=== PATIENT | female | born 1945 | race Caucasian/White ===

== ENCOUNTER 2018-09-26 17:53 | Emergency (ER) | payer OTHER, MEDICARE ==
[2018-09-26] MEDS ORDERED: HYDROCODONE/APAP 7.5/325 MG TAB ONE (19:24)
[2018-09-26] MEDS ORDERED: KETOROLAC 30 MG/ML INJ ONE (19:24)
--- NOTE | 2018-09-26 19:49 | RAD REPORT ---
EXAM DESCRIPTION: RAD - Lumbar Spine 3 Views - 09/26/2018 7:36 pm CLINICAL HISTORY: PAIN Fall, trauma COMPARISON: LUMBAR SPINE 3 VIEWS dated 11/11/2014; SPINE LUMBAR W OBLIQUE dated 03/26/2009 FINDINGS: Lumbar spine and sacrum/coccyx, multiple projections are submitted Vertebral body heights appear maintained. No acute lumbar compression fracture noted. Moderate degene rative changes present at L4-5 and L5-S1. No spondylolysis or spondylolisthesis. Thin lucency is seen along the posterior aspect of the sacrum on the lateral projection, suspicious f or nondisplaced fracture. IMPRESSION: Nondisplaced inferior sacral fracture is suspected. No acute lumbar spine abnormality seen.
--- NOTE | 2018-09-26 20:11 | RAD REPORT ---
EXAM DESCRIPTION: RAD - Sacrum And Coccyx - 09/26/2018 7:35 pm CLINICAL HISTORY: PAIN Fall, trauma COMPARISON: LUMBAR SPINE 3 VIEWS dated 11/11/2014; SPINE LUMBAR W OBLIQUE dated 03/26/2009 FINDINGS: Lumbar spine and sacrum/coccyx, multiple projections are submitted Vertebral body heights appear maintained. No acute lumbar compression fracture noted. Moderate degene rative changes present at L4-5 and L5-S1. No spondylolysis or spondylolisthesis. Thin lucency is seen along the posterior aspect of the sacrum on the lateral projection, suspicious f or nondisplaced fracture. IMPRESSION: Nondisplaced inferior sacral fracture is suspected. No acute lumbar spine abnormality seen.
--- NOTE | 2018-09-26 20:44 | EDPHYS ---
Physician Documentation [facility] Name: Shu Montano Age: 73 yrs Sex: Female : 1945 Arrival Date: 09/26/2018 Time: 17:54 Bed 27 Private MD: Abelardo Messina C ED Physician Shalom Herron HPI: 09/26 21:00 This 73 yrs old Female presents to ER via Ambulatory with complaints of Fall jr8 Injury, Back Pain. 21:00 Details of fall: The patient fell from an upright position, while standing. Onset: The jr8 symptoms/episode began/occurred acutely, today. Associated injuries: The patient sustained buttocks. Severity of symptoms: At their worst the symptoms were moderate, in the emergency department the symptoms are unchanged. The patient has not experienced similar symptoms in the past. The patient has not recently seen a physician. Patient was going to sit on bed and missed bed landing directly on floor. Pain since incident . Historical: - Allergies: 17:58 Ciprofloxacin; ss - PMHx: 17:58 Hypertension; ss - PSHx: 17:58 Right mastectomy; Hysterectomy; Bladder lift; ss - Immunization history:: Adult Immunizations up to date. - Social history:: Smoking status: Patient/guardian denies using tobacco. - Ebola Screening: : No symptoms or risks identified at this time. ROS: 21:00 Eyes: Negative for injury, pain, redness, and discharge, ENT: Negative for injury, jr8 pain, and discharge, Neck: Negative for injury, pain, and swelling, Cardiovascular: Negative for chest pain, palpitations, and edema, Respiratory: Negative for shortness of breath, cough, wheezing, and pleuritic chest pain, Abdomen/GI: Negative for abdominal pain, nausea, vomiting, diarrhea, and constipation, MS/Extremity: Negative for injury and deformity, Skin: Negative for injury, rash, and discoloration, Neuro: Negative for headache, weakness, numbness, tingling, and seizure. 21:00 Back: Positive for pain at rest, pain with movement, of the low back area and sacrum. Exam: 21:00 Eyes: Pupils equal round and reactive to light, extra-ocular motions intact. Lids and jr8 lashes normal. Conjunctiva and sclera are non-icteric and not injected. Cornea within normal limits. Periorbital areas with no swelling, redness, or edema. ENT: Nares patent. No nasal discharge, no septal abnormalities noted. Tympanic membranes are normal and external auditory canals are clear. Oropharynx with no redness, swelling, or masses, exudates, or evidence of obstruction, uvula midline. Mucous membranes moist. Neck: Trachea midline, no thyromegaly or masses palpated, and no cervical lymphadenopathy. Supple, full range of motion without nuchal rigidity, or vertebral point tenderness. No Meningismus. Cardiovascular: Regular rate and rhythm with a normal S1 and S2. No gallops, murmurs, or rubs. Normal PMI, no JVD. No pulse deficits. Respiratory: Lungs have equal breath sounds bilaterally, clear to auscultation and percussion. No rales, rhonchi or wheezes noted. No increased work of breathing, no retractions or nasal flaring. Abdomen/GI: Soft, non-tender, with normal bowel sounds. No distension or tympany. No guarding or rebound. No evidence of tenderness throughout. Skin: Warm, dry with normal turgor. Normal color with no rashes, no lesions, and no evidence of cellulitis. MS/ Extremity: Pulses equal, no cyanosis. Neurovascular intact. Full, normal range of motion. Neuro: Awake and alert, GCS 15, oriented to person, place, time, and situation. Cranial nerves II-XII grossly intact. Motor strength 5/5 in all extremities. Sensory grossly intact. Cerebellar exam normal. Normal gait. 21:00 Back: pain, that is mild, of the sacrum, ROM is painful, normal spinal alignment noted, CVA tenderness, is absent, vertebral tenderness, is not appreciated. Vital Signs: 17:58 BP 152 / 73; Pulse 88; Resp 18; Temp 97.6(TE); Pulse Ox 99% on R/A; Weight 72.57 kg; ss Height 5 ft. 5 in. (165.10 cm); Pain 9/10; 19:42 BP 133 / 73; Pulse 78; Resp 17 S; Temp 97.8(O); Pulse Ox 99% on R/A; ca1 20:41 BP 135 / 75; Pulse 80; Resp 17 S; Temp 98.1(O); Pulse Ox 99% on R/A; ca1 20:45 BP 132 / 73; Pulse 79; Resp 17 S; Temp 98.2(O); Pulse Ox 99% on R/A; ca1 17:58 Body Mass Index 26.63 (72.57 kg, 165.10 cm) ss MDM: 19:04 Patient medically screened. jr8 20:41 Data reviewed: vital signs, nurses notes, radiologic studies, plain films, and as a jr8 result, I will discharge patient. Data interpreted: Pulse oximetry: on room air is 99 %. Interpretation: normal. Counseling: I had a detailed discussion with the patient and/or guardian regarding: the historical points, exam findings, and any diagnostic results supporting the discharge/admit diagnosis, radiology results, the need for outpatient follow up, a orthopedic surgeon, to return to the emergency department if symptoms worsen or persist or if there are any questions or concerns that arise at home. ED course: Consulted Dr. Bryan. No surgical requirement. Pain management and conservative therapy at this point which patient is good with . 09/26 19:05 Order name: XRAY Lumbar Spine (3 Views); Complete Time: 20:36 jr8 09/26 19:05 Order name: XRAY Sacrum And Coccyx jr8 Administered Medications: 19:08 Drug: [place] (7.5 mg-325 mg) 1 tabs Route: PO; ca1 19:41 Follow up: Response: No adverse reaction; Pain is decreased ca1 19:10 Drug: TORadol - Ketorolac 15 mg Route: IM; Site: left deltoid; ca1 19:41 Follow up: Response: No adverse reaction; Pain is decreased ca1 Disposition: 09/27 07:03 Co-signature as Attending Physician, Shalom Herron MD I agree with the assessment and kdr plan of care. Disposition: 09/26/18 20:43 Discharged to Home. Impression: Sacral Fracture . - Condition is Stable. - Discharge Instructions: Tailbone Injury. - Prescriptions for Ibuprofen 800 mg Oral Tablet - take 1 tablet by ORAL route every 12 hours As needed take with food; 20 tablet. Tylenol- Codeine #3 300-30 mg Oral Tablet - take 2 tablets by ORAL route every 6 hours As needed; 20 tablet. - Medication Reconciliation Form, Thank You Letter, Antibiotic Education, Prescription Opioid Use form. - Follow up: Garrett Bryan MD; When: 1 week; Reason: Recheck today's complaints, Continuance of care, Re-evaluation by your physician. - Problem is new. - Symptoms have improved. Signatures: Dispatcher [employer] EDMS Shalom Herron MD MD [facility] Miri Jessica RN RN Willam Sofia PA PA jr8 Rosi Leiva RN RN ca1 Corrections: (The following items were deleted from the chart) 09/26 21:13 20:43 09/26/2018 20:43 Discharged to Home. Impression: Sacral Fracture . Condition is ca1 Stable. Forms are Medication Reconciliation Form, Thank You Letter, Antibiotic Education, Prescription Opioid Use. Follow up: Garrett Bryan; When: 1 week; Reason: Recheck today's complaints, Continuance of care, Re-evaluation by your physician. Problem is new. Symptoms have improved. jr8
--- NOTE | 2018-09-26 20:44 | ER ---
[facility] Name: Shu Montano Age: 73 yrs Sex: Female : 1945 Arrival Date: 09/26/2018 Time: 17:54 Bed 27 Private MD: Abelardo Messina C Diagnosis: Sacral Fracture Presentation: 09/26 17:57 Presenting complaint: Patient states: i was gonna sit down on the edge of the bed when ss i fell on a concrete floor and hurt my lower back down to the tail bone; denies hitting head and LOC;. 18:00 Transition of care: patient was not received from another setting of care. Onset of ss symptoms was September 26, 2018. Risk Assessment: Do you want to hurt yourself or someone else? Patient reports no desire to harm self or others. Initial Sepsis Screen: Does the patient meet any 2 criteria? No. Patient's initial sepsis screen is negative. Does the patient have a suspected source of infection? No. Patient's initial sepsis screen is negative. Care prior to arrival: None. 18:00 Method Of Arrival: Ambulatory ss 18:00 Acuity: TIFFANIE 4 ss Historical: - Allergies: 17:58 Ciprofloxacin; ss - PMHx: 17:58 Hypertension; ss - PSHx: 17:58 Right mastectomy; Hysterectomy; Bladder lift; ss - Immunization history:: Adult Immunizations up to date. - Social history:: Smoking status: Patient/guardian denies using tobacco. - Ebola Screening: : No symptoms or risks identified at this time. Screenin:13 Abuse screen: Denies threats or abuse. Denies injuries from another. Nutritional ca1 screening: No deficits noted. Tuberculosis screening: No symptoms or risk factors identified. Fall Risk Fall in past 12 months (25 points). Assessment: 18:13 General: Appears in no apparent distress. comfortable, Behavior is calm, cooperative, ca1 appropriate for age. Pain: Complains of pain in coccyx Pain does not radiate. Pain currently is 9 out of 10 on a pain scale. Quality of pain is described as dull, Pain began 30 min ago. Is continuous. Neuro: Level of Consciousness is awake, alert, obeys commands, Oriented to person, place, time, situation. Cardiovascular: Heart tones S1 S2 present Capillary refill < 3 seconds Patient's skin is warm and dry. Respiratory: Airway is patent Respiratory effort is even, unlabored, Breath sounds are clear bilaterally. GI: Abdomen is flat, non-distended, Bowel sounds present X 4 quads. Abd is soft and non tender X 4 quads. : No deficits noted. No signs and/or symptoms were reported regarding the genitourinary system. EENT: No deficits noted. No signs and/or symptoms were reported regarding the EENT system. Derm: Skin is intact, is healthy with good turgor, Skin is pink, warm \T\ dry. Musculoskeletal: Circulation, motion, and sensation intact. Capillary refill < 3 seconds, Range of motion: intact in all extremities. 19:29 Reassessment: Pt to Radiology. ca1 19:41 Reassessment: Patient appears in no apparent distress at this time. Patient and/or ca1 family updated on plan of care and expected duration. Pain level reassessed. Patient is alert, oriented x 3, equal unlabored respirations, skin warm/dry/pink. Patient states feeling better. 20:45 Reassessment: Patient appears in no apparent distress at this time. Patient is alert, ca1 oriented x 3, equal unlabored respirations, skin warm/dry/pink. Patient states feeling better. Vital Signs: 17:58 BP 152 / 73; Pulse 88; Resp 18; Temp 97.6(TE); Pulse Ox 99% on R/A; Weight 72.57 kg; ss Height 5 ft. 5 in. (165.10 cm); Pain 9/10; 19:42 BP 133 / 73; Pulse 78; Resp 17 S; Temp 97.8(O); Pulse Ox 99% on R/A; ca1 20:41 BP 135 / 75; Pulse 80; Resp 17 S; Temp 98.1(O); Pulse Ox 99% on R/A; ca1 20:45 BP 132 / 73; Pulse 79; Resp 17 S; Temp 98.2(O); Pulse Ox 99% on R/A; ca1 17:58 Body Mass Index 26.63 (72.57 kg, 165.10 cm) ED Course: 17:54 Patient arrived in ED. ag5 17:55 Abelardo Messina MD is Private Physician. ag5 17:59 Arm band placed on right wrist. 18:00 Triage completed. 18:03 Rosi Leiva, RN is Primary Nurse. ca1 18:13 Patient has correct armband on for positive identification. Placed in gown. Bed in low ca1 position. Call light in reach. Side rails up X 1. Pulse ox on. NIBP on. Warm blanket given. 18:26 Willam Sofia PA is PHCP. jr8 18:26 Shalom Herron MD is Attending Physician. jr8 19:35 XRAY Lumbar Spine (3 Views) In Process Unspecified. EDMS 19:35 XRAY Sacrum And Coccyx In Process Unspecified. EDMS 19:37 X-ray completed. Patient tolerated procedure well. Patient moved back from radiology. 20:42 Garrett Santos MD is Referral Physician. jr8 21:01 No provider procedures requiring assistance completed. Patient did not have IV access ca1 during this emergency room visit. Administered Medications: 19:08 Drug: [place] (7.5 mg-325 mg) 1 tabs Route: PO; ca1 19:41 Follow up: Response: No adverse reaction; Pain is decreased ca1 19:10 Drug: TORadol - Ketorolac 15 mg Route: IM; Site: left deltoid; ca1 19:41 Follow up: Response: No adverse reaction; Pain is decreased ca1 Outcome: 20:43 Discharge ordered by . jr8 21:01 Discharged to home via wheelchair, with significant other. ca1 21:01 Condition: stable 21:01 Discharge instructions given to patient, Instructed on discharge instructions, follow up and referral plans. medication usage, Demonstrated understanding of instructions, follow-up care, medications, Prescriptions given X 2. 21:13 Patient left the ED. ca1 Signatures: Dispatcher [employer] EDNJ Miri Jessica RN RN Willam Sofia PA PA jr [facility] Rosi Leiva RN RN [facility] Yrn Harrington ag5
[2018-09-26 21:17] VITALS: O2SAT 99
[2018-09-26 21:21] VITALS: BP 132/73; TEMP 98.2
== END 2018-09-26 21:13 | disposition home or self-care (01) ==
LOC: ER 17:53
DX: S32.10XA Unspecified fracture of sacrum, initial encounter for closed fracture (principal); W18.39XA Other fall on same level, initial encounter; I10 Essential (primary) hypertension
CPT/HCPCS: 72100; 72220; 96372; 99284

== ENCOUNTER 2023-05-07 10:46 | Inpatient (IN) | payer OTHER ==
[2023-05-07] MEDS ORDERED: NA CHLORIDE 0.9% 1,000 ML ONE (11:21)
[2023-05-07 11:52] LABS: Absolute Lymphocytes (CBC) 0.7 K/uL (0.7-4.9); Hematocrit 40.2 % (36.0-45.0); Lymphocytes % 6.8 % (15.3-44.8); MCV 91.2 fL (80-100); MPV 9.7 fL (7.6-11.3); Platelets 266 thou/uL (152-406); RBC Red Blood Cell Count 4.41 M/uL (3.86-4.86)
[2023-05-07 12:00] LABS: Protime INR 1.11
--- NOTE | 2023-05-07 12:00 | RAD REPORT ---
EXAM DESCRIPTION: CT - CTFB CLINICAL HISTORY: TRAUMA COMPARISON: Head C Spine Cap Wo Con dated 05/07/2023 TECHNIQUE: Axial thin cut noncontrast CT images of the face were obtained with sagittal and coronal reconstruction images. All CT scans are performed using dose optimization technique as appropriate and may include automated exposure control or mA/KV adjustment according to patient size. FINDINGS: No acute facial bone fracture is seen.The mandible is intact. The globes and orbital contents are grossly unremarkable.Left maxillary sinus mucous retention cyst. The paranasal sinuses and mastoids are otherwise clear. IMPRESSION: Negative for facial bone fracture. Left maxillary sinus mucous retention cyst.
--- NOTE | 2023-05-07 12:07 | RAD REPORT ---
EXAM DESCRIPTION: CT - Head C Spine Cap Wo Con - 05/07/2023 11:15 am CLINICAL HISTORY: TRAUMA COMPARISON: No comparisons TECHNIQUE: Head and cervical spine CT images were obtained without IV contrast. Chest, abdomen, and pelvis CT images were obtained also without IV contrast. Multiplanar reformats were generated and rev iewed. All CT scans are performed using dose optimization technique as appropriate and may include automated exposure control or mA/KV adjustment according to patient size. FINDINGS: CT HEAD: No intracranial hemorrhage, mass effect, or edema. No evidence of acute territorial infarct. No midli ne shift or abnormal fluid collection. The ventricles are normal in caliber and configuration for age . Basal cisterns are patent. Mastoid aircells and paranasal sinuses are clear. No acute skull fractur e. CT CERVICAL SPINE: No acute cervical spine fracture or subluxation. Vertebral body heights are well maintained. Facet jim ints are normal in alignment. No hyperattenuating canal hematoma. Prevertebral and paraspinous soft t issues are unremarkable. CT CHEST: No pneumothorax, pulmonary contusion or pleural fluid collection. No mediastinal hematoma and the aor ta and pulmonary arteries are unremarkable. No chest will mass or abnormal axillary finding. Calcifie d left hilar small lymph nodes, suggestive of prior granulomatous infection. Small left lung calcifie d granuloma as well No displaced rib fracture or other significant bony finding. CT ABDOMEN/ PELVIS: No evidence of traumatic injury to solid abdominal viscera. Few calcific granulomas within the spleen . Multiple hepatic well-circumscribed hypoattenuating lesions, the largest is subcapsular at the hepa tic dome measuring at least 4.4 cm. Many of these are suggestive of cysts, however they are not well characterized. Sequelae of distal colon partial resection with colorectal anastomosis. Gallbladder an d biliary tree are unremarkable. No bowel injury or significant finding. No free air, free fluid or a bnormal fat stranding. No urinary bladder abnormality. Mildly comminuted and minimally displaced fracture involving the proximal right humerus, at the base of the greater tuberosity. IMPRESSION: Mildly comminuted and minimally displaced proximal right humerus fracture, at the base o f the greater tuberosity. No other acute traumatic findings. Incidental findings as above.
[2023-05-07 12:14] LABS: Blood Morphology Comment NOT SEEN (NOT SEEN); Platelet Estimate ADEQ; White Blood Cell Scan OK (OK)
[2023-05-07 12:15] LABS: Potassium 5.1 mEq/L (3.5-5.1); Troponin High Sensitivity 7.5 pg/mL (<58.9)
--- NOTE | 2023-05-07 12:22 | RAD REPORT ---
EXAM DESCRIPTION: Shoulder Right 2 View - 05/07/2023 11:07 am CLINICAL HISTORY: PAIN COMPARISON: Shoulder Right 2 View dated 06/04/2009 TECHNIQUE: Internal and external rotation views of the right shoulder were obtained. FINDINGS: Mildly comminuted and displaced fracture at the base of the greater tuberosity. AC joint s hows [id number] degenerative changes. No acute or suspicious findings. IMPRESSION: Mildly comminuted proximal humerus fracture as above.
--- NOTE | 2023-05-07 13:04 | EDPHYS ---
Physician Documentation [facility] Name: Shu Montano Age: 78 yrs Sex: Female : 1945 Arrival Date: 05/07/2023 Time: 10:46 Bed 17 Private MD: ED Physician James Holly HPI: 05/07 10:47 This 78 yrs old Female presents to ER via Unassigned with complaints of fall, jh7 dizziness, R shoulder pain. 10:47 Trauma demographics: Location of Injury: The injury occurred at home, Date: April. Mechanism of injury: Fall: the patient fell from a standing position. Associated injuries: The patient sustained right shoulder, decreased range of motion, painful injury, left face, contusion. Onset: The symptoms/episode began/occurred at 02:00. 78-year-old female presents to the ER status post fall. She reports that she fell at her home at 2 AM and was unsure of how/why she fell. She stated that while on the ground she yelled for her . Unknown LOC. Denies being on any blood thinners. Currently complains of dizziness, right shoulder pain, and nausea/vomiting that began at 8 AM. Was given 8 mg of Zofran by family prior to EMS arrival. History of breast CA with right mastectomy. Patient was given 75 mcg of fentanyl en route to the ER. She is a patient of Dr. Messina.. Historical: - Allergies: 11:06 Ciprofloxacin; db - PMHx: 11:06 Hypertension; db - PSHx: 11:06 RIGHT MASTECTOMY (Hypertension); db - Immunization history:: Adult Immunizations unknown. - Social history:: Smoking status: Patient denies any tobacco usage or history of. ROS: 10:47 Constitutional: Negative for fever, chills, and weight loss, Eyes: Negative for injury, jh7 pain, redness, and discharge, ENT: Negative for injury, pain, and discharge, Neck: Negative for injury, pain, and swelling, Cardiovascular: Negative for chest pain, palpitations, and edema, Respiratory: Negative for shortness of breath, cough, wheezing, and pleuritic chest pain, Abdomen/GI: Negative for abdominal pain, nausea, vomiting, diarrhea, and constipation, Back: Negative for injury and pain, Skin: Negative for injury, rash, and discoloration, 10:47 MS/extremity: Positive for decreased range of motion, pain, of the right shoulder, 10:47 Neuro: Positive for dizziness, Negative for altered mental status, visual changes, 10:47 All other systems are negative, Exam: 10:47 Constitutional: This is a well developed, well nourished patient who is awake, alert, jh7 and in no acute distress. Eyes: Pupils equal round and reactive to light, extra-ocular motions intact. Lids and lashes normal. Conjunctiva and sclera are non-icteric and not injected. Cornea within normal limits. Periorbital areas with no swelling, redness, or edema. ENT: Nares patent. No nasal discharge, no septal abnormalities noted. Tympanic membranes are normal and external auditory canals are clear. Oropharynx with no redness, swelling, or masses, exudates, or evidence of obstruction, uvula midline. Mucous membranes moist. Neck: Trachea midline, no thyromegaly or masses palpated, and no cervical lymphadenopathy. Supple, full range of motion without nuchal rigidity, or vertebral point tenderness. No Meningismus. Cardiovascular: Regular rate and rhythm with a normal S1 and S2. No gallops, murmurs, or rubs. Normal PMI, no JVD. No pulse deficits. Respiratory: Lungs have equal breath sounds bilaterally, clear to auscultation and percussion. No rales, rhonchi or wheezes noted. No increased work of breathing, no retractions or nasal flaring. Back: No spinal tenderness. No costovertebral tenderness. Full range of motion. Skin: Warm, dry with normal turgor. Normal color with no rashes, no lesions, and no evidence of cellulitis. Neuro: Awake and alert, GCS 15, oriented to person, place, time, and situation. Cranial nerves II-XII grossly intact. Sensory grossly intact. Cerebellar exam normal. 10:47 Head/face: Exam is negative for baker signs, raccoon eyes, Noted is contusion, that is superficial, of the left cheek, left eye and left side of forehead, 10:47 Musculoskeletal/extremity: Extremities: noted in the right shoulder: decreased ROM, pain, ROM: limited active range of motion, in the right shoulder secondary to pain, Circulation is intact in all extremities. Pulses: are normal with no appreciated deficits, Perfusion: the extremity is normally perfused throughout, pink, warm, with brisk capillary refill, Sensation intact. Vital Signs: 10:45 BP 160 / 79; Pulse 79; Resp 18; Temp 98.6(O); Pulse Ox 95% ; Weight 72.57 kg; Height 5 db ft. 5 in. ; 12:00 BP 166 / 77; Pulse 75; Resp 14; Pulse Ox 97% on R/A; db 13:30 BP 158 / 76; Pulse 85; Resp 16; Pulse Ox 99% on R/A; db 14:00 BP 162 / 76; Pulse 83; Resp 16; Pulse Ox 98% on R/A; db 15:00 BP 157 / 80; Pulse 89; Resp 16; Pulse Ox 98% on R/A; db 10:45 Body Mass Index 26.63 (72.57 kg, 165.1 cm) db MDM: 10:47 Patient medically screened. [facility] 12:56 Data reviewed: vital signs, nurses notes, lab test result(s), EKG, radiologic studies, [facility] CT scan, plain films. Consideration of Admission/Observation Patient was admitted/placed on observation. Management of patient was discussed with the following: Primary Care Provider: Dr. Messina, the patient's PCP. He requested to discontinue IV fluids, and repeat calcium level/CMP in a couple of hours to determine if the calcium level was truly low. Also requested for admission orders a cardiology consult, Ortho consult (Dr. Holly spoke to Dr. Walter who stated that he would see the patient tomorrow in between surgeries, put patient in sling for now), echo with carotid Doppler, and telemetry.. I considered the following discharge prescriptions or medication management in the emergency department Medications were administered in the Emergency Department. See MAR. Independent interpretation of the following test(s) in the Emergency Department EKG: See my EKG interpretation above. Historians other than the Patient: EMS: EMS. Spouse/Significant Other: . Care significantly affected by the following chronic conditions: Hypertension, Cancer. Counseling: I had a detailed discussion with the patient and/or guardian regarding the historical points, exam findings, and any diagnostic results supporting the discharge/admit diagnosis, the need for further work-up and treatment in the hospital. Response to treatment: the patient's symptoms have mildly improved after treatment. 05/07 10:49 Order name: Basic Metabolic Panel; Complete Time: 12:20 [facility] 05/07 10:49 Order name: CBC with Diff; Complete Time: 12:20 [facility] 05/07 10:49 Order name: Type And Screen; Complete Time: 12:27 [facility] 05/07 10:49 Order name: Urinalysis w/ reflexes [facility] 05/07 10:49 Order name: Troponin High Sensitivity; Complete Time: 12:20 [facility] 05/07 10:49 Order name: PT-INR; Complete Time: 12:09 [facility] 05/07 10:49 Order name: Lactate w/ 2H reflex if indic.; Complete Time: 12:20 [facility] 05/07 11:55 Order name: CBC Smear Scan; Complete Time: 12:20 [facility] 05/07 11:58 Order name: Glucose, Ancillary Testing; Complete Time: 12:09 [facility] 05/07 12:28 Order name: LFT's; Complete Time: 13:37 [facility] 05/07 12:44 Order name: Calcium [facility] 05/07 13:36 Order name: CBC with Automated Diff [facility] 05/07 13:36 Order name: Comprehensive Metabolic Panel [facility] 05/07 13:36 Order name: Urinalysis w/ reflexes [facility] 05/07 13:36 Order name: Troponin High Sensitivity [facility] 05/07 13:38 Order name: CMP: Draw at 1500; Complete Time: 18:02 [facility] 05/07 10:49 Order name: CT Traumagram (Head C Spine CAP wo con); Complete Time: 12:09 [facility] 05/07 10:49 Order name: XRAY Shoulder RIGHT 2 view; Complete Time: 12:23 [facility] 05/07 10:58 Order name: CT Facial Bones W/O Con; Complete Time: 12:09 [facility] 05/07 13:36 Order name: Echo with Doppler [facility] 05/07 10:49 Order name: Labs collected and sent; Complete Time: 11:54 [facility] 05/07 10:49 Order name: EKG - Nurse/Tech; Complete Time: 11:47 [facility] 05/07 10:49 Order name: FSBS; Complete Time: 11:47 [facility] 05/07 12:54 Order name: Sling; Complete Time: 13:04 [facility] 05/07 13:01 Order name: Misc. Order: draw calcium and LFTs at 1500; Complete Time: 15:25 [facility] 05/07 13:38 Order name: Kimberli. Order: d/c IVF; Complete Time: 14:37 [facility] EC:41 Rate is 75 beats/min. Rhythm is regular. QRS [place] is Normal. [place] interval is normal at [facility] 170 msec. QRS interval is normal at 90 msec. QT interval is normal at 418 msec. No Q waves. T waves are Normal. No ST changes noted. Clinical impression: Normal Sinus Rhythm. Administered Medications: 11:50 Drug: NS 0.9% IV 1000 ml IV at 1 bolus Per protocol; 1000 mL bolus Route: IV; Rate: 1 db bolus; Site: right antecubital; 12:45 Follow up: Response: No adverse reaction; IV Status: Order to discontinue infusion; IV db Intake: 100ml Disposition Summary: 05/07/23 13:03 Hospitalization Ordered Notes: Hospitalization Status: Inpatient Admission [facility] Provider: Abelardo Messina Location: Telemetry/MedSurg (Inpatient) [facility] Condition: Fair [facility] Problem: new [facility] Symptoms: are unchanged [facility] Bed/Room Type: Standard [facility] Room Assignment: 204(05/07/23 13:41) Diagnosis - Syncope [facility] - Right Proximal Humerus Fracture [facility] - Concussion with loss of consciousness of unspecified duration [facility] Forms: - Medication Reconciliation Form [facility] - SBAR form [facility] - Leadership Thank You Letter [facility] Signatures: Dispatcher [employer] EDMS Consuelo Hudson Jennifer, COMIC BOOK WRITER COMIC BOOK WRITER [facility] Yaneli Waters, RN RN db Corrections: (The following items were deleted from the chart) 11:02 10:47 This 78 yrs old Female presents to ER via Unassigned with complaints of fall, 7 dizziness, R shoulder pain. [facility] 12:54 12:33 Shoulder Immobilizer [place]. [place] [id number] 13:41 13:03 [facility] bd
--- NOTE | 2023-05-07 13:04 | ER ---
Nurse's Notes [facility] Name: Shu Montano Age: 78 yrs Sex: Female : 1945 Arrival Date: 05/07/2023 Time: 10:46 Bed 17 Private MD: Diagnosis: Syncope;Right Proximal Humerus Fracture;Concussion with loss of consciousness of unspecified duration Presentation: 05/07 10:45 Chief complaint: EMS states: PATIENT FALL LAST NIGHT AT 0200. PT DOES NOT REMEMBER db FALLING, UNKNOWN LOC. PT WOKE UP TO PICKING HER UP OFF THE GROUND. NOW HAS NAUSEA AND DIZZINESS WITH RIGHT SHOULDER PAIN. GLUCOSE 211, RECEIVED FENTANYL 75 MCG IVP FROM EMS. Coronavirus screen: Vaccine status: Patient reports receiving the 2nd dose of the covid vaccine. Client denies travel out of the [place] in the last 14 days. At this time, the client does not indicate any symptoms associated with coronavirus-19. Ebola Screen: Patient negative for fever greater than or equal to 101.5 degrees Fahrenheit, and additional compatible Ebola Virus Disease symptoms Patient denies exposure to infectious person. Patient denies travel to an Ebola-affected area in the 21 days before illness onset. No symptoms or risks identified at this time. Initial Sepsis Screen: Does the patient meet any 2 criteria? No. Patient's initial sepsis screen is negative. Does the patient have a suspected source of infection? No. Patient's initial sepsis screen is negative. Risk Assessment: Do you want to hurt yourself or someone else? Patient reports no desire to harm self or others. Onset of symptoms was May 07, 2023 at 02:00. Care prior to arrival: IV initiated. 20 GA, in the left antecubital area, Glucose check: 211. 10:45 Method Of Arrival: EMS: [facility] db 10:45 Acuity: TIFFANIE 2 db Triage Assessment: 11:06 General: Appears in no apparent distress. comfortable, Behavior is calm, cooperative. db Pain: Complains of pain in left side of forehead and left eye and left cheek, RIGHT SHOULDER. Neuro: Level of Consciousness is awake, alert, obeys commands, Oriented to person, place, time, situation, Speech is normal. Respiratory: Airway is patent Respiratory effort is even, unlabored, Respiratory pattern is regular, symmetrical. Historical: - Allergies: 11:06 Ciprofloxacin; db - PMHx: 11:06 Hypertension; db - PSHx: 11:06 RIGHT MASTECTOMY (Hypertension); db - Immunization history:: Adult Immunizations unknown. - Social history:: Smoking status: Patient denies any tobacco usage or history of. Screenin:10 [facility] ED Fall Risk Assessment (Adult) History of falling in the last 3 months, db including since admission Yes- physiologic fall (2 pts) Confusion or Disorientation Yes (5 pts) Intoxicated or Sedated No (0 pts) Impaired Gait No (0 pts) Mobility Assist Device Used No (0 pt) Altered Elimination No (0 pt) Score/Fall Risk Level 3 or more points = High Risk Oriented to surroundings, Maintained a safe environment. Abuse screen: Denies threats or abuse. Denies injuries from another. Nutritional screening: No deficits noted. Tuberculosis screening: No symptoms or risk factors identified. Assessment: 11:08 Reassessment: PATIENT TO CT. db 11:09 Reassessment: Patient appears in no apparent distress at this time. Patient and/or db family updated on plan of care and expected duration. Pain level reassessed. Patient is alert, oriented x 3, equal unlabored respirations, skin warm/dry/pink. General: Appears in no apparent distress. comfortable, Behavior is calm, cooperative. Neuro: Level of Consciousness is awake, alert, obeys commands. 12:00 Reassessment: Patient appears in no apparent distress at this time. Patient and/or db family updated on plan of care and expected duration. Pain level reassessed. Patient is alert, oriented x 3, equal unlabored respirations, skin warm/dry/pink. General: Appears in no apparent distress. comfortable, Behavior is calm, cooperative. 13:05 Reassessment: NORMAL SALINE DISCONTINUED PER PROVIDER. db 13:30 Reassessment: SLING PLACED ON PT. PT REQUEST FOR SLING TO BE REMOVED. NOTIFIED PROVIDER db THAT SLING WAS REMOVED AND GIVEN TO PT PER PT REQUEST. 13:49 Reassessment: PT RESTRING QUIETLY. NOTIFIED WILL DRAW ANOTHER LAB AT 1500. db 14:35 Reassessment: CALLED FLOOR TO GIVE REPORT. NURSE NOT READY FOR REPORT. STATES WILL CALL db ME BACK. General: Appears in no apparent distress. comfortable, Behavior is calm, cooperative. Neuro: Level of Consciousness is awake, alert, obeys commands, Oriented to person, place, time, situation. Respiratory: Airway is patent Respiratory effort is even, unlabored, Respiratory pattern is regular, symmetrical. 15:20 Reassessment: PHLEBOTOMY AT PATIENT BEDSIDE. db 15:22 Reassessment: REPORT GIVEN TO TATO SHERIDAN. db Vital Signs: 10:45 BP 160 / 79; Pulse 79; Resp 18; Temp 98.6(O); Pulse Ox 95% ; Weight 72.57 kg; Height 5 db ft. 5 in. ; 12:00 BP 166 / 77; Pulse 75; Resp 14; Pulse Ox 97% on R/A; db 13:30 BP 158 / 76; Pulse 85; Resp 16; Pulse Ox 99% on R/A; db 14:00 BP 162 / 76; Pulse 83; Resp 16; Pulse Ox 98% on R/A; db 15:00 BP 157 / 80; Pulse 89; Resp 16; Pulse Ox 98% on R/A; db 10:45 Body Mass Index 26.63 (72.57 kg, 165.1 cm) ED Course: 10:47 Patient arrived in ED. 7 10:47 [facility] 7 10:47 James Holly MD is Attending Physician. 7 11:00 Yaneli Waters, TATO is Primary Nurse. db 11:06 Triage completed. db 11:06 Arm band placed on Patient placed in an exam room. db 11:09 XRAY Shoulder RIGHT 2 view In Process Unspecified. EDMS 11:09 Maintain EMS IV. Dressing intact. Good blood return noted. Site clean \T\ dry. Gauge \T\ db site: 20 G LEFT FOREARM. 11:10 Patient has correct armband on for positive identification. Bed in low position. Call db light in reach. Side rails up X 1. Client placed on continuous cardiac and pulse oximetry monitoring. NIBP monitoring applied. Warm blanket given. 11:17 CT Traumagram (Head C Spine CAP wo con) In Process Unspecified. EDMS 11:17 CT Facial Bones W/O Con In Process Unspecified. EDMS 13:01 Abelardo Messina MD is Hospitalizing Provider. 7 14:37 No provider procedures requiring assistance completed. Patient admitted, IV remains in db place. 15:24 Provided Education on: ADMISSION. db Administered Medications: 11:50 Drug: NS 0.9% IV 1000 ml IV at 1 bolus Per protocol; 1000 mL bolus Route: IV; Rate: 1 db bolus; Site: right antecubital; 12:45 Follow up: Response: No adverse reaction; IV Status: Order to discontinue infusion; IV db Intake: 100ml Medication: 14:38 VIS not applicable for this client. db Intake: 12:45 IV: 100ml; Total: 100ml. db Outcome: 13:03 Decision to Hospitalize by Provider. carlos 14:37 Admitted to ER Hold. Please see [facility] for further documentation. db 14:37 Condition: stable db 14:37 Instructed on the need for admit, 15:38 Admitted to Med/surg accompanied by tech, via stretcher, room 204, with chart, Report db called to NAKUL 15:41 Patient left the ED. db Signatures: Dispatcher [employer] Margo Treviño, MACHINE TANK OPERATOR MACHINE TANK OPERATOR Yaneli Aquino, RN RN db Corrections: (The following items were deleted from the chart) 14:38 14:37 Discharged to db db 15:26 14:00 Reassessment: SLING PLACED ON PT. PT REQUEST FOR SLING TO BE REMOVED. NOTIFIED db PROVIDER THAT SLING WAS REMOVED AND GIVEN TO PT PER PT REQUEST db
[2023-05-07 13:13] LABS: Albumin 3.7 g/dL (3.4-5.0); Bilirubin Direct 0.1 mg/dL (0-0.2); Bilirubin Indirect, Calculated 0.3 mg/dL (0.2-0.8); Bilirubin Total 0.4 mg/dL (0.2-1.0); Protein, Total 7.7 g/dL (6.4-8.2)
[2023-05-07] MEDS ORDERED: ACETAMINOPHEN 325 MG TABLET PO PRN (13:32)
[2023-05-07] MEDS ORDERED: ONDANSETRON 4 MG/2 ML VIAL IV PRN (13:32)
[2023-05-07] MEDS ORDERED: MORPHINE 2 MG/ML SYR IV PRN ×2 (13:34→19:09)
[2023-05-07 16:09] LABS: Albumin 3.5 g/dL (3.4-5.0); Bilirubin Total 0.4 mg/dL (0.2-1.0); Potassium 3.7 mEq/L (3.5-5.1); Protein, Total 7.3 g/dL (6.4-8.2)
[2023-05-07 16:49] VITALS: BMI 26.6
[2023-05-07] MEDS: ONDANSETRON 4 MG/2 ML VIAL IV PRN (19:57)
[2023-05-07] MEDS: HYDROCODONE/APAP 5/325 MG TAB PO SCH (21:58)
[2023-05-07] MEDS ORDERED: VALSARTAN 80 MG TAB PO ONE (22:07)
--- NOTE | 2023-05-07 22:59 | HP ---
Date of Admission: 05/07/2023 Chief Complaint: Fall and right arm pain. History Of Present Illness: This is an 78-year-old very pleasant female patient who was doing fine i n her normal usual state of health until last night around 2:30 a.m. or so she went to the bathroom a nd she fell down in the bathroom and was brought into emergency room via EMS, and after she was evalu ated, I was contacted by emergency room provider requesting admission to the hospital. As per emerge ncy room provider, there was no definite reason for this fall and injury, and when I talked to chuck garcia and her this evening, the patient informed me when I asked what the last thing she remember s before falling down, she reported that she was going to the bathroom and it was dark in her bedroom as well as in the bathroom and she ended up hitting one of the bathroom doors and she tried to grab the site bar and she could not and she ended up falling down. Her heard this loud noise and immediately went there. He found her on the bathroom floor and she was communicating with him. She was crying due to pain and he ended up calling ambulance and she was brought into the ER. Since her presentation to the emergency room and after this fall and head injury, she is complaining of dizzine ss and nausea. Allergies: TO AMOXICILLIN, DETAILS UNKNOWN; CIPRO CAUSING LEG PAIN. Medications: Vitamin D3 1000 units daily, valsartan/HCTZ 80/12.5 mg taking 1 tablet daily, metoprolo l succinate 25 mg daily, and MiraLAX once a week. Review of Systems: MOHS SURGEON: As mentioned above. Musculoskeletal: Right arm pain. GI: As mentioned above. All other systems reviewed and negative. Past Medical History: Significant for hypertension, hyperlipidemia, diverticulosis, gallstones, live r cyst, right breast cancer, osteoarthritis at multiple sites, osteopenia. Past Surgical History: Cataract surgery, right-sided mastectomy due to breast cancer, partial resect ion of colon due to diverticulosis, hysterectomy, bladder suspension, and removal of basal cell carci noma. Family History: Father , had congestive heart failure. Mother ; had asthma, Alzheimer disea se, and osteoporosis. Brother has history of hypertension, diabetes, and myocardial infarction. Sis ter with hypertension. Social History: Negative for smoking and alcohol use. Physical Examination: Vital Signs: Last temperature 98.5, pulse 85, respiratory rate 18, blood pressure 173/76, oxygen sat uration 95%. Height 5 feet 5 inches, weight 160 pounds. General: Awake, alert, oriented, not in distress. HEENT: Head atraumatic, normocephalic. Conjunctivae nonerythematous. Sclerae white. Mouth, no thr ush or edema noted. Ears/Nose, no mass, lesion, discharge noted. Neck: Supple. No JVD, lymph nodes, bruit, thyromegaly noted. Lungs: Bilateral good equal air entry. Clear to auscultation. No rhonchi. No rales. Heart: Normal heart sounds, no murmur or gallop. Abdomen: Soft, bowel sounds normal. No guarding, rigidity, tenderness, mass, hepatosplenomegaly, dis tention, or bruit noted. Extremities: Right upper extremity is in arm sling and neurovascular status of right hand is normal. Skin: No rash, ulcer, cellulitis. Lymphatics: No lymph node enlargement in neck, supraclavicular, infraclavicular region. Neuro: No focal neurological deficit. Chest: Unremarkable. External Genitalia: Deferred. Rectal: Deferred. Laboratory Data: White count 10.3, hemoglobin 13.7, platelets 266. Sodium , potassium ___ , chloride , bicarb , BUN , creatinine , glucose . Liver function tests . CAT scan of the head and cervical spine was negative for an y acute intracranial or cervical spine changes. CAT scan of chest, abdomen, and pelvis was unremarka ble for any acute findings except comminuted and minimally displaced proximal right humerus fracture at the base of the greater tuberosity. The right humerus x-ray also shows the similar finding. CAT scan of the facial bones was negative for fracture. Impression: 1.Fracture, right proximal humerus. 2.Hypertension. 3.Hyperlipidemia. 4.Right breast cancer. 5.Diverticulosis. 6.Liver cyst. 7.Osteoarthritis, multiple sites. 8.Osteopenia. 9.Cerebral concussion. Plan: We will go ahead and admit the patient to the hospital for further evaluation and management o f this problem. We will go ahead and consult orthopedic surgeon, Dr. Walter, and pain medications will be given per order. We will go ahead and give [place] 5 mg 2 times a day on scheduled basis and give morphine on a p.r.n. basis. Give nausea medication, Zofran per order. SCD was ordered for DVT prophylaxis. The patient is showing signs of cerebral concussion, and at this time, adequate hydrati on and adequate rest was recommended in which time her nausea and dizziness symptoms should improve. For hypertension, we will continue her antihypertensive medication per order, monitor blood pressure if necessary adjust antihypertensive medication. Details of plan of treatment discussed with the shaista eduardo and her including we will follow up with sheet manufacturing supervisor and consultation was requested fr annette Cabrera and I have ordered echocardiogram and carotid Doppler as part of workup. I will see he r tomorrow morning for followup. CALLIE/MODL Voice ID: [id number]
--- NOTE | 2023-05-08 03:51 | P.CNS ---
Date of Consult: 05/07/23 Reason for Consult: syncope Requesting Physician: Hector Messina Primary Care Provider: Dr. Messina Chief Complaint: Syncope History of Present Illness: Ms. Montano is an 78 yo with a hx of HTN, HLD, Breast Cancer who got up from her bed to go to the bathroom, fell in the bathroom, unclear if from actual syncope of just from poor vision and stumbling. She sustained a right humerus fracture from the fall. She will be admitted for fall with concussion, possible syncope, and evaluation by Dr. Walter. Dr. Messina has ordered an ECHO and carotid doppler for evaluation. Allergies ciprofloxacin HCl [From Cipro] Allergy (Verified 10/12/14 17:33) achiness in calves and ankles Home medications list reviewed: Yes Home Medications: Cholecalciferol (Vitamin D3) [Vitamin D3] 1,000 unit PO DAILY 10/12/14 Metoprolol Succinate [Toprol Xl*] 25 mg PO DAILY 05/07/23 Valsartan/Hydrochlorothiazide [Valsartan-Hctz 80-12.5 mg Tab] See Rx Instru ctions .ROUTE .COMPLEX 05/07/23 - Past Medical/Surgical History Diabetic: No -: breast cancer 1997 -: HTN -: arthritis -: HLD -: right mastectomy -: hysterectomy -: bladder sx -: basal cell carcinoma removal -: cataract surgery Psychosocial/ Personal History: Lives at home with - Family History Brother Medical History: Hypertension, Diabetes, Other (see notes) ([place]) Father Medical History: Heart disease Notes: CHF Mother Medical History: Stroke, Other (see notes) (asthma, Alzheimer's) Sister Medical History: Hypertension - Social History Smoking Status: Never smoker Alcohol use: No CD- Drugs: No Caffeine use: Yes Place of Residence: Home Review of Systems 10-point ROS is otherwise unremarkable Cardiovascular: As per HPI Musculoskeletal: As per HPI Neurological: As per HPI Physical Examination Temp Pulse Resp BP Pulse Ox 97.9 F 73 18 155/76 H 94 05/08/23 00:00 05/08/23 00:00 05/08/23 00:00 05/08/23 00:00 05/08/23 00:00 General: Disheveled, Mild distress HEENT: Normocephalic, Other (left eyebrow with ecchymosis/edema) Neck: Supple, 2+ carotid pulse no bruit Respiratory: Clear to auscultation bilaterally Cardiovascular: No edema, Regular rate/rhythm Capillary refill: <2 Seconds Gastrointestinal: Normal bowel sounds Musculoskeletal: No clubbing, Other (right humerus fx, + pulses) Integumentary: No tenderness/swelling Neurological: Other (dizzy and nauseated) Lymphatics: No axilla or inguinal lymphadenopathy External genitalia: Deferred Laboratory Data (last 24 hrs) 05/07/23 05/07/23 05/07/23 12:37 11:37 11:37 WBC 10.30 Hgb 13.7 Hct 40.2 Plt Count 266 PT 12.2 INR 1.11 Sodium Potassium BUN Creatinine Glucose Total Bilirubin 0.4 AST 19 ALT 32 Alkaline Phosphatase 77 05/07/23 11:37 WBC Hgb Hct Plt Count PT INR Sodium 137 Potassium 5.1 BUN 12 Creatinine 0.77 Glucose 161 H Total Bilirubin AST ALT Alkaline Phosphatase - Problems (1) Syncope Current Visit: Yes Status: Acute Plan: ECHO, carotid doppler, neuro assessments q 4h, telemetry, SCDs for DVT prophylaxis (2) Hypertension Onset Date: 10/13/14 Current Visit: No Status: Acute Plan: valsartan/HCTZ 80/12.5 po daily Metoprolol succinate 25mg po daily
[2023-05-08] MEDS: ONDANSETRON 4 MG/2 ML VIAL IV PRN ×2 (07:07→14:17)
--- NOTE | 2023-05-08 07:33 | RAD REPORT ---
EXAM DESCRIPTION: - CP - 05/08/2023 6:02 am CLINICAL HISTORY: syncope COMPARISON: No comparisons TECHNIQUE: Real-time sonographic evaluation of both carotid systems was performed. Doppler interroga tion was performed with waveform tracing bilaterally. FINDINGS: Normal high resistance waveforms are noted in both external carotid arteries. The common c arotid arteries and internal carotid arteries show normal low resistance waveforms. No significant plaque formation is seen. Peak systolic and end diastolic velocity values and the ICA/ CCA ratios are in the non-hemodynamically significant range. Antegrade flow seen in both vertebral arteries. IMPRESSION: No significant atherosclerotic changes noted. No evidence of a hemodynamically significant stenosis.
[2023-05-08] MEDS: HYDROCODONE/APAP 5/325 MG TAB PO SCH ×2 (08:38→21:18)
[2023-05-08] MEDS: METOPROLOL XL 25 MG TAB PO SCH (08:39)
--- NOTE | 2023-05-08 09:50 | RAD REPORT ---
EXAM DESCRIPTION: US - Abdomen Exam Complete - 05/08/2023 9:32 am CLINICAL HISTORY: liver cysts? COMPARISON: Abdomen Pelvis W Contrast dated 04/11/2019 FINDINGS: No aortic aneurysm. Multiple benign cysts present in the right and left hepatic lobe. The portal vein is patent. The IVC at the level of the liver is unremarkable. No ascites. Cholelithiasis present. No biliary ductal dilatation. No gallbladder wall thickening. No sonographic Kerr's sign. The pancreas was grossly unremarkable. The right kidney measures 11.1 cm normal echotexture. No hydronephrosis. No suspicious masses. The left kidney measures 9.5 cm with a normal echotexture. No hydronephrosis. No suspicious masses. The spleen is unremarkable. IMPRESSION: Cholelithiasis without sonographic evidence acute cholecystitis. No biliary duct dilatat ion. Benign hepatic cysts.
[2023-05-08] MEDS ORDERED: PROMETHAZINE INJ 25 MG/ML AMP IV PRN (11:16)
[2023-05-08] MEDS ORDERED: PROMETHAZINE 25 MG TABLET PO PRN (15:04)
[2023-05-08] MEDS ORDERED: PROMETHAZINE 25 MG/SUPP PR PRN (15:06)
[2023-05-08] MEDS: VALSARTAN 80 MG TAB PO SCH (16:43)
--- NOTE | 2023-05-08 18:47 | CON ---
Date of Consultation: 05/08/2023 This is my first time seeing this patient to my knowledge. She is an 78-year-old female, who unfortu nately fell, perhaps injuring her head and face as well as her right shoulder. She was seen and exam ined in the emergency room, where she was apparently ruled out for other extremity injuries and admit becca to the floor. I am asked to see her in consultation. On physical examination, she appears neuro vascularly intact. All long bones and joints are palpated without pain or crepitation with the excep tion of her right shoulder. She is suffering a degree of nausea now, but she is there with her famil y and we discussed that this comminuted proximal humerus fracture is nondisplaced and would be treate d nonoperatively. At this point, she has been instructed on range of motion of the elbow, wrist, and hand, however, needs a sling for her shoulder that she will be using. She can follow up in my offic e when she would like or available, but definitely needs to be followed up at week 3 for initiation o f Codman exercises and further radiographs. This has been discussed with the family. I will attempt to get this communicated to Dr. Messina as well. WILDER Voice ID: [id number] Report ID: [id number]
--- NOTE | 2023-05-09 06:35 | PN ---
Date of Progress Note: 05/08/2023 Subjective: The patient denied any new complaints. Her nausea and dizziness were better this overni ght when I saw her. No vomiting. No new complaints overnight reported. Objective: Vital Signs: Reviewed. HEENT: Unremarkable. Lungs: Clear to auscultation. Heart: Sounds normal. Abdomen: Soft. Bowel sounds normal. No guarding, rigidity, tenderness, distention. Extremities: No leg edema. Neuro: No focal neurological deficits. Impression: 1.Concussion. 2.Syncope. 3.Hypertension. 4.Right proximal humerus fracture. Plan: We will continue to follow up with computer help desk specialist, Dr. Walter, who evaluated the pat ient and discussed details with me and informed me that the patient does not need any surgical interv ention and shoulder sling is what he ordered for immobilization and he will follow up on outpatient b asis with the patient. We will follow up with retail service lead merchandiser regarding her syncope. We believe it was a fall due to her running into the bathroom door and losing balance middle of the night on basis of her history. Echo and carotid Doppler will be done today and I have also ordered abdominal ultrasoun d to look at multiple lesions in the liver which appears to be hepatic cyst and prior ultrasound resu lts reviewed and we would like to make sure to establish stability of this liver lesions which appear s to be multiple liver cyst. After I saw her, the patient had lot of nausea, vomiting, and dizziness, and Zofran was not helping, so Phenergan was ordered for symptoms as reported. CALLIE/MODL Voice ID: [id number] Report ID: [id number]
[2023-05-09] MEDS: VALSARTAN 80 MG TAB PO SCH (07:53)
[2023-05-09] MEDS: HYDROCODONE/APAP 5/325 MG TAB PO SCH ×2 (07:53→20:03)
[2023-05-09] MEDS: METOPROLOL XL 25 MG TAB PO SCH (07:53)
--- NOTE | 2023-05-09 08:44 | RAD REPORT ---
EXAM DESCRIPTION: CT - Head Brain Wo Cont - 05/09/2023 8:25 am CLINICAL HISTORY: fall, head injury, dizziness, vomiting Fall, head injury COMPARISON: Facial Bones W/ Mpr dated 05/07/2023; HEAD BRAIN W O CONTRAST dated 06/22/2014; Head C Spi ne Cap Wo Con dated 05/07/2023 TECHNIQUE: All CT scans are performed using dose optimization technique as appropriate and may inclu de automated exposure control or mA/KV adjustment according to patient size. FINDINGS: No intracranial hemorrhage, hydrocephalus or extra-axial fluid collection.Moderate brain a trophy.No areas of brain edema or evidence of midline shift. The paranasal sinuses and mastoids are clear. The calvarium is intact. IMPRESSION: No acute intracranial abnormality.
--- NOTE | 2023-05-09 10:07 | P.PN ---
Subjective Date of Service: 05/09/23 Primary Care Provider: Dr. Messina Chief Complaint: Syncope Subjective: Improving Review of Systems 10-point ROS is otherwise unremarkable Cardiovascular: Other (denies CP, SOB), As per HPI Gastrointestinal: Other (nausea improved) Neurological: Other (Continued dizziness) Physical Examination - Vital Signs Temperature: 97.9 F Blood Pressure: 168/78 Pulse: 73 Respirations: 18 Pulse Ox (%): 94 - Physical Exam General: Oriented x3 HEENT: Normocephalic, PERRLA Neck: Supple, 2+ carotid pulse no bruit Respiratory: Clear to auscultation bilaterally Cardiovascular: No edema, Normal pulses, Irregular heart rate/rhythm Capillary refill: <2 Seconds Gastrointestinal: Normal bowel sounds, Soft and benign Musculoskeletal: No clubbing Integumentary: No rashes Neurological: Normal speech, Normal tone Lymphatics: No axilla or inguinal lymphadenopathy External genitalia: Deferred Rectal: Deferred Assessment And Plan - Current Problems (Diagnosis) (1) Syncope Current Visit: Yes Status: Acute Plan: ECHO, carotid doppler, neuro assessments q 4h, telemetry, SCDs for DVT prophylaxis 05/09/23 Carotid doppler negative. Continued dizziness although improved from yesterday ECHO today (2) Hypertension Onset Date: 10/13/14 Current Visit: No Status: Acute Plan: valsartan/HCTZ 80/12.5 po daily Metoprolol succinate 25mg po daily
[2023-05-09 10:15] VITALS: O2SAT 94
[2023-05-09] MEDS: D5 0.9 NS 1,000 ML IV SCH ×2 (12:15→22:44)
--- NOTE | 2023-05-09 12:54 | EKG ---
Test Date: 2023-05-07 Test Time: 11:41:48 Slab Worker: LEONARDO MEASUREMENT RESULTS: Intervals: Rate: 75 MS: 170 QRSD: 90 QT: 418 QTc: 466 [place]: P: 72 MS: 170 QRS: -24 T: 26 INTERPRETIVE STATEMENTS: Normal sinus rhythm Minimal voltage criteria for LVH, may be normal variant Borderline ECG Compared to ECG 04/04/2016 14:44:35 No significant changes Electronically Signed On 05-09-23 12:50:36 RN SURGERY ICU by You Cabrera
--- NOTE | 2023-05-09 14:51 | ECHO ---
HEIGHT: 5 ft 5 in WEIGHT: 160 lb 0 oz DATE OF STUDY: 05/09/[address]: Yoselyn Waters SAILMAKER-BC 2-DIMENSIONAL: YES M.MODE: YES DOPPLER: YES COLOR FLOW: YES TDS: PORTABLE: YES DEFINITY: BUBBLE STUDY: DIAGNOSIS: SYNCOPE/ DIZZINESS/ FALL CARDIAC HISTORY: CATHERIZATION: SURGERY: PROSTHETIC VALVE: PACEMAKER: MEASUREMENTS (cm) DIASTOLIC (NORMALS) SYSTOLIC (NORMALS) IVSd 0.8 (0.6-1.2) LA Diam 3.74 (1.9-4.0) LVEF 69% LVIDd 5.1 (3.5-5.7) LVIDs 3.1 (2.0-3.5) %FS 39% LVPWd 1.0 (0.6-1.2) Ao Diam 2.6 (2.0-3.7) 2 DIMENSIONAL ASSESSMENT: RIGHT ATRIUM: NORMAL LEFT ATRIUM: NORMAL RIGHT VENTRICLE: NORMAL LEFT VENTRICLE: NORMAL TRICUSPID VALVE: MILD TRICUSPID REGURGITAITON MITRAL VALVE: MODERATE MITRAL REGURGITAITON PULMONIC VALVE: MILD PULMONIC INSUFFICIENCY AORTIC VALVE: MILD AORTIC INSUFFICIENCY PERICARDIAL EFFUSION: NONE AORTIC ROOT: NORMAL LEFT VENTRICULAR WALL MOTION: NORMAL DOPPLER/COLOR FLOW: SEE BELOW COMMENTS: 1. NORMAL LEFT VENTRICULAR EJECTION FRACTION 60-65% WITH NORMAL WALL MOTION 2. GRADE I DIASTOLIC DYSFUNCTION 3. MODERATE MITRAL REGURGITATION 4. MILD AORTIC INSUFFICIENCY, TRICUSPID REGURGITAITON, PULMONIC INUSFFICIENCY TECHNOLOGIST: ALKA WOODRFUF
--- NOTE | 2023-05-09 20:11 | PN ---
Date of Progress Note: 05/09/2023 Subjective: The patient was seen this morning for followup. No new complaints or problems reported by her. Continues to have some dizziness, nausea, and very poor appetite. Objective: Vital Signs: Reviewed. HEENT: Unremarkable. Lungs: Clear to auscultation. Heart: Sounds normal. Abdomen: Soft. Bowel sounds normal. No guarding, rigidity, tenderness, distention. Extremities: No leg edema. Laboratory Data: Repeat CAT scan of the head done today without contrast came back negative for any acute intracranial changes. Impression: 1.Syncope. 2.Cerebral concussion. 3.Right humerus fracture. 4.Hypertension. Plan: We will go ahead and start the patient on IV fluid today per order D5 normal saline. Continue nausea medication per order. Continue pain medication per order. The patient was encouraged to amb ulate as tolerated, and I have advised her to start drinking Gatorade at least couple of bottles a da y for next 2 to 3 days and eat bland diet like crackers, bread, toast, rice, pasta, potatoes, etc. T gucci, while she was out of bed, she almost felt like she was going to faint. Her blood pressure was not low at that time as checked by the nursing staff. With that in mind, we will not discharge her t gucci and plan is to discharge her tomorrow. This evening, I did go back to see her and she actually was feeling better this evening compared to earlier today. Today, she was able to eat better than wh at she has done in last 2 to 3 days. I will see her tomorrow morning and possible discharge to go home tomorrow . CALLIE/MODL Voice ID: [id number] Report ID: [id number]
[2023-05-10 07:43] VITALS: BP 177/71; TEMP 98.2
[2023-05-10] MEDS: HYDROCODONE/APAP 5/325 MG TAB PO SCH (09:00)
[2023-05-10] MEDS: METOPROLOL XL 25 MG TAB PO SCH (09:19)
[2023-05-10] MEDS: VALSARTAN 80 MG TAB PO SCH (09:19)
[2023-05-10] MEDS: D5 0.9 NS 1,000 ML IV SCH (09:21)
== END 2023-05-10 13:30 | disposition home or self-care (01) | DRG 89 ==
LOC: ER 10:46 → ERHOLD 13:46 → 2ND 14:07
PROVIDERS: ADMIT Internal Medicine; ATTEND Internal Medicine
DX: S06.0X9A Concussion with loss of consciousness of unspecified duration, initial encounter (principal); S42.201A Unspecified fracture of upper end of right humerus, initial encounter for closed fracture; I10 Essential (primary) hypertension; E78.5 Hyperlipidemia, unspecified; M19.09 Primary osteoarthritis, other specified site; K57.90 Diverticulosis of intestine, part unspecified, without perforation or abscess without bleeding; K76.89 Other specified diseases of liver; M85.80 Other specified disorders of bone density and structure, unspecified site; C50.911 Malignant neoplasm of unspecified site of right female breast; R55 Syncope and collapse; Z85.3 Personal history of malignant neoplasm of breast; Z90.11 Acquired absence of right breast and nipple; Z88.1 Allergy status to other antibiotic agents; Z90.710 Acquired absence of both cervix and uterus; Z79.899 Other long term (current) drug therapy; W18.30XA Fall on same level, unspecified, initial encounter; Y93.9 Activity, unspecified; Y99.9 Unspecified external cause status; Y92.012 Bathroom of single-family (private) house as the place of occurrence of the external cause
CPT/HCPCS: 36415; 70450; 70486; 71250; 72125; 76377; 76700; 80048; 80053; 80076; 82947; 83605; 84484; 85025; 85610; 86850; 86900; 86901; 93005; 93306; 93880; 96360; 97112; 97116; 97161; 97530; 99285; J2270; J2405; J7030; J7042; Q0169